=== PATIENT | male | born 1990 | race Caucasian/White ===

== ENCOUNTER 2018-01-10 18:17 | Emergency (ER) | payer SELFPAY ==
[~2018-01-10] VITALS: Ht 175.3 cm; Wt 136.1 kg
[2018-01-10] MEDS ORDERED: IBUP600T16 PO (18:53)
[2018-01-10] MEDS ORDERED: CYCL-331 PO (18:53)
--- NOTE | 2018-01-10 18:53 | PHYS DOC ---
Past History Past Medical History: No Pertinent History Past Surgical History: No Surgical History Alcohol Use: None Drug Use: None Adult General Chief Complaint Chief Complaint: BACK PAIN OR INJURY HPI HPI Patient is a 27 year old male who presents with complaint of right-sided back pain. Patient states that his symptoms started earlier today approximately 3 hours prior to arrival. The patient states that he bent over to pick something up when he felt a sudden twinge of pain along the right lower portion of his back. Patient states that the pain travels along the lateral aspect of the right side but does not extend down past the knee. The patient states that the pain worsens with movement and is very sharp. Patient denies any associated nausea, hematuria, or fever. Patient states he took aspirin prior to arrival with no significant benefit. Patient denies any fall or other trauma. Patient denies any history of low back pain but states he does have history of kidney stones. Patient states over this pain does not feel consistent with kidney stone. Patient denies any numbness to the right lower extremity, loss of bowel or bladder control, footdrop, or saddle anesthesia. Patient rates his pain with movement as 8 out of 10. Review of Systems Review of Systems Constitutional: Denies fever or chills [] Eyes: Denies change in visual acuity, redness, or eye pain [] HENT: Denies nasal congestion or sore throat [] Respiratory: Denies cough or shortness of breath [] Cardiovascular: Denies chest pain or edema[] GI: Denies abdominal pain, nausea, vomiting, bloody stools or diarrhea [] : Denies dysuria or hematuria [] Musculoskeletal: Back pain, denies joint pain[] Integument: Denies rash or skin lesions [] Neurologic: Denies headache, focal weakness or sensory changes [] All other systems were reviewed and found to be within normal limits, except as documented in this note. Allergies Allergies Allergies Coded Allergies Type Severity Reaction Last Updated Verified No Known Drug Allergies 01/10/18 No Physical Exam Physical Exam Constitutional: Alert and afebrile, no acute distress. [] HENT: Normocephalic, atraumatic, bilateral external ears normal, oropharynx moist, no oral exudates, nose normal. [] Eyes: PERRLA, EOMI, conjunctiva normal, no discharge. [] Neck: Normal range of motion, no tenderness, supple, no stridor. [] Cardiovascular:Heart rate regular rhythm, no murmur [] Lungs & Thorax: Bilateral breath sounds clear to auscultation [] Abdomen: Bowel sounds normal, soft, no tenderness, no masses, no pulsatile masses. [] Skin: Warm, dry, no erythema, no rash. [] Back: No midline tenderness, right lower lumbar paraspinous muscle tenderness to palpation, negative straight leg test. [] Extremities: No tenderness, no cyanosis, no clubbing, ROM intact, no edema. [] Neurologic: Alert and oriented X 3, normal motor function, normal sensory function, no focal deficits noted. [] Current Patient Data Vital Signs Vital Signs Date Time Temp Pulse Resp B/P (MAP) Pulse Ox O2 Delivery O2 Flow Rate FiO2 01/10/18 18:17 98.9 79 18 99 Room Air Lab Results Not performed EKG EKG Not performed[] Radiology/Procedures Radiology/Procedures Not performed[] Course & Med Decision Making Course & Med Decision Making Pertinent Labs and Imaging studies reviewed. (See chart for details) Symptoms appear consistent with acute lower lumbar muscle strain. Patient prescribed ibuprofen and Flexeril for continued outpatient treatment. Advised follow-up in 5-7 days with primary doctor for reevaluation and return the emergency Department for any worsening symptoms. Patient was understanding and agreement with treatment plan. Dragon Disclaimer Dragon Disclaimer This electronic medical record was generated, in whole or in part, using a voice recognition dictation system. Departure Departure: Impression: Primary Impression: Acute low back pain Disposition: HOME, SELF-CARE Condition: IMPROVED Referrals: PCP,NO (PCP) Patient Instructions: Back Pain, Adult Additional Instructions: Follow-up with your primary doctor in the next 5-7 days for reevaluation. Return to the emergency department for any worsening symptoms. Scripts Cyclobenzaprine Hcl (CYCLOBENZAPRINE HCL) 10 Mg Tablet 1 TAB PO TID PRN for MUSCLE SPASMS, #30 TAB Prov: RITA MELISSA MD 01/10/18 Ibuprofen (IBUPROFEN) 600 Mg Tablet 600 MG PO Q6HRS PRN for PAIN, #30 TAB Prov: RITA MELISSA MD 01/10/18 Problem Qualifiers Primary Impression: Acute low back pain Back pain laterality: right Sciatica presence: without sciatica Qualified Codes: M54.5 - Low back pain RITA MELISSA MD Jan 10, 2018 18:53
[2018-01-10 19:00] VITALS: BP 163/90
== END 2018-01-10 19:00 | disposition home or self-care (01) ==
LOC: ER 18:17
DX: M54.5 Low back pain (principal); Z87.442 Personal history of urinary calculi
CPT/HCPCS: 99283

== ENCOUNTER 2019-04-12 21:49 | Emergency (ER) | payer OTHER ==
[~2019-04-12] VITALS: Ht 175.3 cm; Wt 124.7 kg
[~2019-04-12 21:49] MED LIST: CYCL-331 PO; IBUP600T16 PO
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
== END 2019-04-12 22:28 | disposition home or self-care (01) ==
LOC: ER 21:49
DX: Z77.21 Contact with and (suspected) exposure to potentially hazardous body fluids (principal); F17.210 Nicotine dependence, cigarettes, uncomplicated
CPT/HCPCS: 86703; 86705; 86709; 86803; 87340; 99284

== ENCOUNTER 2019-06-02 11:55 | Emergency (ER) | payer BC, OTHER ==
[~2019-06-02] VITALS: Ht 175.3 cm; Wt 130.6 kg
--- NOTE | 2019-06-02 12:48 | RAD ---
EXAM: Chest, 2 views. HISTORY: Cough. COMPARISON: None. FINDINGS: 2 views of the chest are obtained. There is no infiltrate, pleural effusion or pneumothorax. The heart is normal in size. IMPRESSION: No acute pulmonary finding. Electronically signed by: Leslie Lai MD (06/02/2019 12:45 PM) [place] [id number]
[2019-06-02] MEDS ORDERED: AMOX1TAB61 PO (13:12)
--- NOTE | 2019-06-02 13:13 | PHYS DOC ---
Past History Past Medical History: No Pertinent History, Other Additional Past Medical Histor: seasonal allergies Past Surgical History: Other Additional Past Surgical Histo: WISDOM TEETH Smoking: Cigarettes, Less than 1pk/day Alcohol Use: Occasionally Drug Use: None Adult General Chief Complaint Chief Complaint: COUGH [facility] HPI Patient is a 28-year-old male who presents with complaint of one month history of productive cough. Patient states that he had initially been on a [place] and states that symptoms had improved and then he later developed a head cold. He states that the head cold has resolved but he continues to have the productive cough. He states the sputum is yellow. He denies any fever. He denies any shortness of breath or chest pain.[] Review of Systems Review of Systems Constitutional: Denies fever or chills [] Respiratory: Complains of cough without shortness of breath [] Cardiovascular: No additional information not addressed in HPI [] Integument: Denies rash or skin lesions [] Neurologic: Denies headache, focal weakness or sensory changes [] All other systems were reviewed and found to be within normal limits, except as documented in this note. Allergies Allergies Allergies Coded Allergies Type Severity Reaction Last Updated Verified No Known Drug Allergies 01/10/18 No Physical Exam Physical Exam Constitutional: Well developed, well nourished, no acute distress, non-toxic appearance. [] Cardiovascular:Heart rate regular rhythm, no murmur [] Lungs & Thorax: Fine rhonchi are noted bilaterally to auscultation [] Extremities: No tenderness, no cyanosis, no clubbing, ROM intact, no edema. [] Neurologic: Alert and oriented X 3, no focal deficits noted. [] Current Patient Data Vital Signs Vital Signs Date Time Temp Pulse Resp B/P (MAP) Pulse Ox O2 Delivery O2 Flow Rate FiO2 06/02/19 12:08 98.4 91 18 98 Room Air EKG EKG [] Radiology/Procedures Radiology/Procedures [] Impressions: PROCEDURE: CHEST PA & LATERAL EXAM: Chest, 2 views. HISTORY: Cough. COMPARISON: None. FINDINGS: 2 views of the chest are obtained. There is no infiltrate, pleural effusion or pneumothorax. The heart is normal in size. IMPRESSION: No acute pulmonary finding. Electronically signed by: Leslie Lai MD (06/02/2019 12:45 PM) [place] [id number] Course & Med Decision Making Course & Med Decision Making Pertinent Labs and Imaging studies reviewed. (See chart for details) [] Dragon Disclaimer Dragon Disclaimer This electronic medical record was generated, in whole or in part, using a voice recognition dictation system. Departure Departure: Impression: Primary Impression: Bronchitis Disposition: 01 HOME, SELF-CARE Condition: STABLE Referrals: PCP,NO (PCP) Patient Instructions: Acute Bronchitis Scripts Amoxicillin/Potassium Clav (AUGMENTIN 875-125 TABLET) 1 Each Tablet 1 TAB PO BID for INFECTION for 10 Days, #20 TAB 0 Refills Prov: TATO AVERY Jr. DO 06/02/19 TATO AVERY Jr. DO Jun 02, 2019 13:13
[2019-06-02 13:39] VITALS: BP 144/96
== END 2019-06-02 13:40 | disposition home or self-care (01) ==
LOC: ER 11:55
DX: J40 Bronchitis, not specified as acute or chronic (principal); F17.210 Nicotine dependence, cigarettes, uncomplicated
CPT/HCPCS: 71046; 99284

== ENCOUNTER 2020-05-13 18:11 | Emergency (ER) | payer BC ==
[~2020-05-13] VITALS: Ht 175.3 cm; Wt 127.2 kg
[~2020-05-13 18:11] MED LIST changes: +AMOX1TAB61 PO
[2020-05-13 18:28] VITALS: BP 162/113
--- NOTE | 2020-05-13 18:55 | PHYS DOC ---
Past History Past Medical History: No Pertinent History, Other Additional Past Medical Histor: seasonal allergies Past Surgical History: Other Additional Past Surgical Histo: WISDOM TEETH Smoking: Cigarettes, Less than 1pk/day Alcohol Use: Occasionally Drug Use: None General Adult EDM: Chief Complaint: COUGH HPI: HPI: 29-year-old male presents with cough and generalized fatigue. The patient is concerned about COVID-19. He states that he was exposed to someone today that has it. Patient also states that he was positive for COVID-19 in December and was off work for 2 weeks at that time. He denies fever or chills. He has mild shortness of breath, but he has had shortness of breath for some time. The patient was diagnosed with asthma 4 years ago but pulmonary function testing recently has shown he does not have asthma. He has stopped taking his Flovent and only occasionally uses his albuterol. He has not been using it lately. Review of Systems: Review of Systems: Constitutional: Denies fever or chills Eyes: Denies change in visual acuity HENT: Denies nasal congestion or sore throat Respiratory: Denies cough or shortness of breath Cardiovascular: Denies chest pain or edema GI: Denies abdominal pain, nausea, vomiting, bloody stools or diarrhea : Denies dysuria Musculoskeletal: Denies back pain or joint pain Integument: Denies rash Neurologic: Denies headache, focal weakness or sensory changes Endocrine: Denies polyuria or polydipsia Lymphatic: Denies swollen glands Psychiatric: Denies depression or anxiety Heart Score: Risk Factors: Risk Factors: DM, Current or recent (<one month) smoker, HTN, HLP, family history of CAD, obesity. Risk Scores: Score 0 - 3: 2.5% MACE over next 6 weeks - Discharge Home Score 4 - 6: 20.3% MACE over next 6 weeks - Admit for Clinical Observation Score 7 - 10: 72.7% MACE over next 6 weeks - Early Invasive Strategies Allergies: Allergies: Allergies Coded Allergies Type Severity Reaction Last Updated Verified No Known Drug Allergies 01/10/18 No Physical Exam: PE: Constitutional: Well developed, well nourished, morbidly obese, no acute distress, non-toxic appearance. [] HENT: Normocephalic, atraumatic, bilateral external ears normal, oropharynx moist, no oral exudates, nose normal. [] Eyes: PERRLA, EOMI, conjunctiva normal, no discharge. [] Neck: Normal range of motion, no tenderness, supple, no stridor. [] Cardiovascular:Heart rate regular rhythm, no murmur [] Lungs & Thorax: Mild end expiratory wheezing in the right base [] Abdomen: Bowel sounds normal, soft, no tenderness, no masses, no pulsatile masses. [] Skin: Warm, dry, no erythema, no rash. [] Back: No tenderness, no CVA tenderness. [] Extremities: No tenderness, no cyanosis, no clubbing, ROM intact, no edema. [] Neurologic: Alert and oriented X 3, normal motor function, normal sensory function, no focal deficits noted. [] Psychologic: Affect normal, judgement normal, mood normal. [] Current Patient Data: Vital Signs: Vital Signs Date Time Temp Pulse Resp B/P (MAP) Pulse Ox O2 Delivery O2 Flow Rate FiO2 05/13/20 18:28 98.6 94 28 162/113 (129) 95 Room Air EKG: EKG: [] Radiology/Procedures: Radiology/Procedures: [] Impressions: Single view chest dated 05/13/2020: No comparison available. Clinical Indication: Shortness breath. Findings: Single upright portable exam of the chest was performed. Heart size and mediastinal contours are within normal limits given technique. The lungs are clear without evidence of focal consolidation. Vascular interstitium is within normal limits. Impression:: Negative portable chest. Electronically signed by: Catina Cervantes MD (05/13/2020 7:09 PM) [facility] [place] DICTATED AND SIGNED BY: CATINA CERVANTES MD DATE: 05/13/201908 CC: TAYLOR GARZA DO; PCP,NO ~ Course & Med Decision Making: Course & Med Decision Making Pertinent Labs and Imaging studies reviewed. (See chart for details) Patient's labs are unremarkable. His chest x-ray is negative for acute findings. I believe the patient having a mild exacerbation of reactive airway disease as he does not meet asthma criteria according to pulmonary function testing. I will give him 125 Solu-Medrol in the emergency room. I have advised that he use his albuterol at home as it will help him clear the mucus and improve his breathing. Patient states verbal understanding. He is stable for discharge at this time. [] Dragon Disclaimer: Dragon Disclaimer: This electronic medical record was generated, in whole or in part, using a voice recognition dictation system. Departure Departure: Impression: Primary Impression: Bronchitis Disposition: 01 HOME/RESIDENCE PRIOR TO ADM Condition: STABLE Referrals: PCP,NO (PCP) Patient Instructions: Acute Bronchitis, [id number] TAYLOR GARZA DO May 13, 2020 18:55
--- NOTE | 2020-05-13 19:11 | RAD ---
Single view chest dated 05/13/2020: No comparison available. Clinical Indication: Shortness breath. Findings: Single upright portable exam of the chest was performed. Heart size and mediastinal contours are within normal limits given technique. The lungs are clear without evidence of focal consolidation. Vascular interstitium is within normal limits. Impression:: Negative portable chest. Electronically signed by: Blane Cervantes MD (05/13/2020 7:09 PM) IESHA
[2020-05-13 19:21] LABS: BASO % 1 % (0-3); EOS # 0.5 x10^3/uL (0.0-0.7); EOS % 7 % (0-3); HEMATOCRIT 41.7 % (39.0-53.0); HEMOGLOBIN 13.9 g/dL (13.0-17.5); LYMPH # 2.3 x10^3/uL (1.0-4.8); LYMPH % 30 % (24-48); MEAN CORPUSCULAR HEMOGLOBIN 28 pg (25-35); MEAN CORPUSCULAR HGB CONC 34 g/dL (31-37); MEAN CORPUSCULAR VOLUME 84 fL (79-100); MONO # 0.6 x10^3/uL (0.0-1.1); MONO % 8 % (0-9); NEUT # 4.4 x10^3uL (1.8-7.7); NEUT % 56 % (31-73); PLATELET COUNT 181 x10^3/uL (140-400); RED BLOOD COUNT 4.96 x10^6/uL (4.30-5.70); RED CELL DISTRIBUTION WIDTH 13.8 % (11.5-14.5); WHITE BLOOD COUNT 7.8 x10^3/uL (4.0-11.0)
[2020-05-13 19:29] LABS: ALBUMIN 3.3 g/dL (3.4-5.0); ALBUMIN/GLOBULIN RATIO 0.8 (1.0-1.7); CALCIUM 9.5 mg/dL (8.5-10.1); CREATININE 1.1 mg/dL (0.7-1.3); GFR 79.1; POTASSIUM 3.7 mmol/L (3.5-5.1); TOTAL BILIRUBIN 0.3 mg/dL (0.2-1.0); TOTAL PROTEIN 7.7 g/dL (6.4-8.2)
[2020-05-13] MEDS ORDERED: methylPREDNISolone SOD SUCC PF 125 MG/2 ML VIAL. IV ONE (19:45)
== END 2020-05-13 20:23 | disposition home or self-care (01) ==
LOC: ER 18:11
DX: J40 Bronchitis, not specified as acute or chronic (principal); F17.210 Nicotine dependence, cigarettes, uncomplicated
CPT/HCPCS: 36415; 71045; 80053; 85025; 96374; 99284; J2930; 99285-25

== ENCOUNTER 2021-04-17 09:24 | Emergency (ER) | payer BC, OTHER ==
[~2021-04-17] VITALS: Ht 175.3 cm; Wt 127.2 kg
[2021-04-17 09:31] VITALS: BP 149/90
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
== END 2021-04-17 10:31 | disposition home or self-care (01) ==
LOC: ER 09:24
DX: S50.01XA Contusion of right elbow, initial encounter (principal); F17.210 Nicotine dependence, cigarettes, uncomplicated; Y04.2XXA Assault by strike against or bumped into by another person, initial encounter; Y93.89 Activity, other specified; Y92.89 Other specified places as the place of occurrence of the external cause; Y99.8 Other external cause status
CPT/HCPCS: 73080; 99283-25

== ENCOUNTER 2021-05-21 09:16 | Emergency (ER) | payer BC, OTHER ==
[~2021-05-21] VITALS: Ht 175.3 cm; Wt 127.2 kg
--- NOTE | 2021-05-21 10:36 | PHYS DOC ---
Past History Past Medical History: No Pertinent History, Other Additional Past Medical Histor: seasonal allergies (CATINA ROMERO APRN) Past Surgical History: Other Additional Past Surgical Histo: WISDOM TEETH (CATINA ROMERO APRN) Smoking: Cigarettes, Less than 1pk/day Alcohol Use: Occasionally Drug Use: None (CATINA ROMERO APRN) Adult General Chief Complaint Chief Complaint: LOWER EXT PAIN HPI HPI Patient is a 30-year-old male presents emergency department complaining of a skin infection to his right lower leg he noticed starting this past Wednesday morning when he woke up from bed. Patient reports he was cutting wood this past Wednesday and was bitten by what he thinks were chigger type insects, reported he was scratching his leg and the area became raw. Patient denies placing any ointments or medications on the area of concern, denies taking any medications to help with his symptoms. Patient states it is painful to touch rating a 5 out of 10 pain. Patient denies other complaints or physical concerns. (CATINA ROMERO APRN) Review of Systems Review of Systems 14 body systems of review of systems have been reviewed. See HPI for pertinent positives and negative responses, otherwise all other systems are negative, nonpertinent or noncontributory. Constitutional: Negative except as outlined in HPI above. Skin: Negative except as outlined in HPI above. Eyes: Negative except as outlined in HPI above. HENT: Negative except as outlined in HPI above. Respiratory: Negative except as outlined in HPI above. Cardiovascular: Negative except as outlined in HPI above. GI: Negative except as outlined in HPI above. : Negative except as outlined in HPI above. Musculoskeletal: Negative except as outlined in HPI above. Integument: Negative except as outlined in HPI above. Neurologic: Negative except as outlined in HPI above. Endocrine: Negative except as outlined in HPI above. Lymphatic: Negative except as outlined in HPI above. Psychiatric: Negative except as outlined in HPI above. (CATINA ROMERO APRN) Allergies Allergies Allergies Coded Allergies Type Severity Reaction Last Updated Verified No Known Drug Allergies 01/10/18 No (CATINA ROMERO APRN) Physical Exam Physical Exam Constitutional: Well developed, well nourished, no acute distress, non-toxic appearance. 30-year-old male in no apparent distress. HENT: Normocephalic, atraumatic. Eyes: Conjunctiva normal, no discharge. Neck: Normal range of motion, no stridor. Cardiovascular: No cyanosis appreciated, distal cap refill less than 2 seconds. Lungs & Thorax: Patient is in no respiratory distress, no audible adventitious lung sounds appreciated. Abdomen: Nontender, no abnormalities noted. Skin: Warm, dry, no erythema, no rash. Except for right lower extremity anterior aspect lower leg just above ankle area has 5 x 7 cm area of erythema clearly demarcated skin borders not raised with centralized yellow crusted skin weeping. No lymphangitis appreciated. Back: No tenderness, no deformities. Extremities: No tenderness, no cyanosis, no clubbing, ROM intact, no edema. Right lower extremity 2+ dorsalis pedis/posterior tibial pulse, no edema or swelling appreciated. No loss of sensation. Neurologic: Alert and oriented X 3, normal motor function, normal sensory function, no focal deficits noted. Psychologic: Affect normal, judgement normal, mood normal. (CATINA ROMERO APRN) Current Patient Data Vital Signs Vital Signs Date Time Temp Pulse Resp B/P (MAP) Pulse Ox O2 Delivery O2 Flow Rate FiO2 05/21/21 09:46 98.2 72 20 147/86 (106) 97 Room Air (CATINA ROMERO APRN) EKG EKG [] (CATINA ROMERO APRN) Radiology/Procedures Radiology/Procedures [] (CATINA ROMERO APRN) Heart Score C/O Chest Pain: No Risk Factors: Risk Factors: DM, Current or recent (<one month) smoker, HTN, HLP, family history of CAD, obesity. Risk Scores: Risk Factors: DM, Current or recent (<one month) smoker, HTN, HLP, family history of CAD, obesity. (CATINA ROMERO APRN) Course & Med Decision Making Course & Med Decision Making Pertinent Labs and Imaging studies reviewed. (See chart for details) 30-year-old male, vital signs reviewed, presents emergency department concerning skin infection of his right lower leg. Physical examination consistent with cellulitis, however does have yellow crusted weeping. Discussed with patient will start on Keflex p.o. 4 times a day x7 days, will also prescribe mupirocin ointment topically for differential Staphylococcus coverage related to yellow crusted weeping and patient's history of type 2 diabetes. Patient is amenable to ED planning. Discussed antibiotics and side effects. Discussed with the patient all findings and diagnostic testing as well as the need to follow-up with their primary care provider for further evaluation and treatment or return to the ED if any new or worsening symptoms. Strict return precautions were also discussed at length, the patient voiced understanding and agreement with the discharge planning. The patient was nontoxic in appearance, in no apparent distress, and hemodynamically stable at the time of disposition. (CATINA ROMERO APRN) Course & Med Decision Making I was the Attending physician on the above date of service of this patient. This patient was evaluated, examined, treated, and dispositioned from the emergency department by the mid-level practitioner. Although I was working at the time , no assistance was requested. Electronically signed, Starr Cabello DO (STARR CABELLO DO) [place] Disclaimer Dragon Disclaimer This electronic medical record was generated, in whole or in part, using a voice recognition dictation system. (CATINA ROMERO APRN) Departure Departure: Impression: Primary Impression: Cellulitis Disposition: 01 HOME / SELF CARE / HOMELESS Condition: GOOD Referrals: CHRISTIANO BYNUM (PCP) Patient Instructions: Cellulitis Additional Instructions: You were seen today for an infection of your lower right leg. As we discussed this is a skin infection called cellulitis. I have started you on an oral antibiotic as well as a topical antibiotic that you will place on the infected area 3 times a day after cleansing, please take oral antibiotic as directed until complete. Keep clean and dry and place antibiotic ointment on the affected area 2-3 times a day. Please follow-up with your primary care physician soon for reevaluation of your skin infection or worsening of symptoms. Thank you for visiting our Emergency Department. It was a pleasure taking care of you today in the emergency department and we appreciate you trusting us with your care. If any additional problems come up don't hesitate to return to visit us. Please follow up with your primary care provider so they can plan additional care if needed and know about the problem that you had. If symptoms worsen come back to the Emergency Department. Any concerning symptoms that start such as chest pain, shortness of air, weakness or numbness on one side of the body, running high fevers or any other concerning symptoms return to the ER. EMERGENCY DEPARTMENT GENERAL DISCHARGE INSTRUCTIONS Thank you for coming to [facility] (ED) today and trusting us with you care. We trust that you had a positivie experience in our Emergency Department. If you wish to speak to the department management, you may call the director at [phone]. YOUR FOLLOW UP INSTRUCTIONS ARE FOLLOWS: 1. Do you have a private Doctor? If you do not have a private doctor, please ask for a resource list of physicians or clinics that may be able to assist you with follow up care. 2. The Emergency Physician has interpreted your x-rays. The X-Ray specialist will also review them. If there is a change in the findings, you will be notified in 48 hours when at all possible. 3. A lab test or culture has been done, your results will be reviewed and you will be notified if you need a change in treatment. ADDITIONAL INSTRUCTIONS AND INFORMATION: 1. Your care today has been supervised by a physician who is specially trained in emergency care. Many problems require more than one evaluation for a complete diagnosis and treatment. We recommend that you schedule your follow up appointment as recommended to ensure complete treatment of you illness or injury. If you are unable to obtain follow up care and continue to have a problem, or if your condition worsens, we recommend that you return to the ED. 2. We are not able to safely determine your condition over the phone nor are we able to give sound medical advice over the phone. For these safety reasons, if you call for medical advice we will ask you to come to the ED for further evaluation. 3. If you have any questions regarding these discharge instructions please call the ED at [phone]. SAFETY INFORMATION: In the interest of safety, wellness, and injury prevention; we encourage you to wear your sealbelt, if you smoke; quite smoking, and we encourage family to use a protective helmet for bicycling and other sporting events that present an increased risk for head injury. IF YOUR SYMPTOMS WORSEN OR NEW SYMPTOMS DEVELOP, OR YOU HAVE CONCERNS ABOUT YOUR CONDITION; OR IF YOUR CONDITION WORSENS WHILE YOU ARE WAITING FOR YOUR FOLLOW UP APPOINTMENT; EITHER CONTACT YOUR PRIMARY CARE DOCTOR, THE PHYSICIAN WHOSE NAME AND NUMBER YOU WERE GIVEN, OR RETURN TO THE ED IMMEDIATELY. Scripts Mupirocin (MUPIROCIN) 22 Gm Oint...g. 1 PARAG TP TID for skin infection for 5 Days, #22 GM 0 Refills Apply to infected area three times a day for 5 days. Prov: CATINA ROMERO APRN 05/21/21 Cephalexin (KEFLEX) 500 Mg Capsule 1 CAP PO QID for Skin infection for 7 Days, #28 CAP 0 Refills Prov: CATINA ROMERO APRN 05/21/21 Problem Qualifiers Primary Impression: Cellulitis Site of cellulitis: extremity Site of cellulitis of extremity: lower extremity Laterality: right Qualified Codes: L03.115 - Cellulitis of right lower limb CATINA ROMERO APRN May 21, 2021 10:36 STARR CABELLO DO May 22, 2021 06:09
[2021-05-21] MEDS ORDERED: CEPH500C PO (10:47)
[2021-05-21] MEDS ORDERED: MUPI22OI2 TP (10:47)
[2021-05-21 10:50] VITALS: BP 137/86
[2021-05-21] MEDS ORDERED: BACITRACIN ZINC TOPICAL OINT PACKET. TP ONE (11:00)
== END 2021-05-21 11:01 | disposition home or self-care (01) ==
LOC: ER 09:16
DX: L03.115 Cellulitis of right lower limb (principal); F17.210 Nicotine dependence, cigarettes, uncomplicated
CPT/HCPCS: 99283

== ENCOUNTER 2021-05-25 09:00 | Emergency (ER) | payer BC ==
[~2021-05-25] VITALS: Ht 175.3 cm; Wt 127.2 kg
[2021-05-25 09:00] VITALS: BP 153/71
[~2021-05-25 09:00] MED LIST changes: +CEPH500C PO; +MUPI22OI2 TP
[2021-05-25] MEDS ORDERED: CLIN150C16 PO (09:24)
--- NOTE | 2021-05-25 09:25 | PHYS DOC ---
Past History Past Medical History: No Pertinent History, Other Additional Past Medical Histor: seasonal allergies Past Surgical History: Other Additional Past Surgical Histo: WISDOM TEETH Smoking: Cigarettes, Less than 1pk/day Alcohol Use: Occasionally Drug Use: None Adult General Chief Complaint Chief Complaint: CELLULITIS HPI HPI Patient is a 30-year-old male presenting for cellulitis of right lower extremity. This started approximately 1 week ago after he was cutting wood and was bitten numerous times on lower extremities by chigger type insects. States he was scratching his leg until the area became. He presented to our ER 5 days ago for evaluation and at that time was given Keflex and mupirocin for cellulitis treatment. Patient adhered to wound care instructions and return precautions, states area of erythema has grown in size and remains pruritic and painful and brought to the touch. He was concerned as he feels that the skin lesion is getting larger despite him being completely compliant with prescribed mupirocin cream and Keflex. He is otherwise been afebrile, no other symptoms reported Review of Systems Review of Systems Fourteen body systems of review of systems have been reviewed. See HPI for pertinent positives and negative responses, other pena all other systems are negative, non-pertinent or non-contributory Allergies Allergies Allergies Coded Allergies Type Severity Reaction Last Updated Verified No Known Drug Allergies 01/10/18 No Physical Exam Physical Exam Constitutional: Well developed, well nourished, no acute distress, non-toxic appearance. HENT: Normocephalic, atraumatic, bilateral external ears normal, oropharynx m oist, no oral exudates, nose normal. Eyes: PERRLA, EOMI, conjunctiva normal, no discharge. Neck: Normal range of motion, no tenderness, supple, no stridor. Cardiovascular: Heart rate regular, sinus rhythm, no murmurs rubs or gallops Lungs & Thorax: Bilateral breath sounds clear to auscultation Abdomen: Bowel sounds normal, soft, no tenderness, no masses, no pulsatile masses. Nonsurgical abdomen, no peritoneal signs Skin: Warm, dry, on patient's distal portion of right lower extremity superior to ankle on anterior portion of santizo he has erythematous macules with areas overlying that can pain vesicles with some bullous formation. Entire area which is approximately 4 x 5 cm induration is slightly indurated without any streaking or crepitus Back: No tenderness, no CVA tenderness. Extremities: No tenderness, no cyanosis, no clubbing, ROM intact, no edema. Neurologic: Alert and oriented X 3, grossly normal motor & sensory function, no focal deficits noted. Psychologic: Affect normal, judgement normal, mood normal. Current Patient Data Vital Signs Vital Signs Date Time Temp Pulse Resp B/P (MAP) Pulse Ox O2 Delivery O2 Flow Rate FiO2 05/25/21 09:00 70 14 153/71 (98) 99 Room Air EKG EKG [] Radiology/Procedures Radiology/Procedures [] Heart Score C/O Chest Pain: No Risk Factors: Risk Factors: DM, Current or recent (<one month) smoker, HTN, HLP, family history of CAD, obesity. Risk Scores: Risk Factors: DM, Current or recent (<one month) smoker, HTN, HLP, family history of CAD, obesity. Course & Med Decision Making Course & Med Decision Making ABCs unremarkable HPI physical exam and comprehensive ER work-up nonconcerning for any emergent or surgical issues Patient here for cellulitis, appears to be getting worse despite being on adequate treatment with Keflex to target staph organisms With that said, I had extensive conversation with patient he works in local correction/long term's. He is exposed and at risk for MRSA. There is concern for potential MRSA infection given that he had been scratching the leg and he had been exposed to this at work During decision made to switch antibiotics from Keflex to clindamycin. He was educated on the risks and benefits of this medication and the importance of taking it as scheduled to completion Patient advised to schedule follow-up with primary care physician this upcoming week to review ER visit today and need for close repeat evaluation. Strict return precautions discussed with verbalized understanding by patient, all questions and concerns addressed prior to departure Dragon Disclaimer Dragon Disclaimer This electronic medical record was generated, in whole or in part, using a voice recognition dictation system. Departure Departure: Impression: Primary Impression: Bullous impetigo Disposition: HOME / SELF CARE / HOMELESS Condition: STABLE Referrals: CHRISTIANO BYNUM (PCP) Patient Instructions: Clindamycin injection Additional Instructions: You were seen for an infection called bullous impetigo otherwise known as lo lulitis. You should ten the area of redness when you get home. If your redness spreads past the marked area at 24 hours you should have it evaluated again. You do not have an abscess right now but you could develop one. If so you will need to have it drained. You should return to the ED immediately if you develop worsening pain, fever, swelling, redness, drainage, any sign of abscess, or any other new or concerning symptoms. Take the entire course of antibiotics as prescribed. You were prescribed clindamycin which will cover MRSA which you are exposed to at your occupation. Please defer to resource sheet which will detail side effects that although are not common, may present and require medical attention. It is imperative for you to contact your primary care provider tomorrow to review recent ER visits and need for close outpatient follow-up Scripts Clindamycin Hcl (CLINDAMYCIN HCL) 150 Mg Capsule 3 CAP PO TID for cellulitis for 10 Days, #57 CAP Prov: STARR CABELLO DO 05/25/21 STARR CABELLO DO May 25, 2021 09:25
[2021-05-25] MEDS ORDERED: CLINDAMYCIN HCL 150 MG CAPSULE ONE (09:28)
[2021-05-25] MEDS ORDERED: CLINDAMYCIN HCL 150 MG CAPSULE PO ONE (09:30)
== END 2021-05-25 09:35 | disposition home or self-care (01) ==
LOC: ER 09:00
DX: L03.115 Cellulitis of right lower limb (principal); F17.210 Nicotine dependence, cigarettes, uncomplicated
CPT/HCPCS: 99283-25

== ENCOUNTER 2021-05-30 09:17 | Emergency (ER) | payer BC ==
[~2021-05-30] VITALS: Ht 175.3 cm; Wt 127.2 kg
[~2021-05-30 09:17] MED LIST changes: +CLIN150C16 PO
[2021-05-30] MEDS ORDERED: PRED50TA PO (10:01)
--- NOTE | 2021-05-30 10:02 | PHYS DOC ---
Past History Past Medical History: No Pertinent History, Other Additional Past Medical Histor: seasonal allergies Past Surgical History: Other Additional Past Surgical Histo: WISDOM TEETH Smoking: Cigarettes, Less than 1pk/day Alcohol Use: Occasionally Drug Use: None General Adult EDM: Chief Complaint: ALLERGIC REACTION HPI: HPI: Patient is a 30-year-old male presenting with pruritic rash more centralized on his chest and forearms. Also states that his whole body is itching. Is taking Benadryl without improvement. Patient states that he was being treated for a rash on distal right anterior santizo with a steroid cream by his primary care prov ider. Patient states he also has taken Keflex and was recently prescribed clindamycin 4 days ago. Patient states the rash on the other parts of his body started 2 days ago. Review of Systems: Review of Systems: All other systems within normal limits except for as noted in the HPI Allergies: Allergies: Allergies Coded Allergies Type Severity Reaction Last Updated Verified No Known Drug Allergies 05/30/21 No Physical Exam: PE: Constitutional: Well developed, well nourished, no acute distress, non-toxic appearance. [] HENT: Normocephalic, atraumatic, bilateral external ears normal, nose normal. [] Eyes: PERRLA, conjunctiva normal, no discharge. [] Neck: No rigidity, supple, no stridor. [] Cardiovascular: Regular rate and rhythm, brisk cap refill [] Lungs & Thorax: Non labored symmetric respirations, no tachypnea or respiratory distress [] Abdomen: Soft, nondistended. Skin: Warm, dry, erythema on right lower leg, blanching. Has a scabbed area. No hives. Faint papules on chest. Back: Unremarkable Extremities: No deformities, range of motion grossly intact, no lower extremity edema [] Neurologic: Alert and oriented X 3, no focal deficits noted. [] Psychologic: Affect normal, judgement normal, mood normal. [] Current Patient Data: Vital Signs: Vital Signs Date Time Temp Pulse Resp B/P (MAP) Pulse Ox O2 Delivery O2 Flow Rate FiO2 05/30/21 09:32 96.4 87 18 157/94 (115) 98 Room Air EKG: EKG: [] Radiology/Procedures: Radiology/Procedures: [] Heart Score: C/O Chest Pain: No Risk Factors: Risk Factors: DM, Current or recent (<one month) smoker, HTN, HLP, family history of CAD, obesity. Risk Scores: Score 0 - 3: 2.5% MACE over next 6 weeks - Discharge Home Score 4 - 6: 20.3% MACE over next 6 weeks - Admit for Clinical Observation Score 7 - 10: 72.7% MACE over next 6 weeks - Early Invasive Strategies Course & Med Decision Making: Course & Med Decision Making Pertinent Labs and Imaging studies reviewed. (See chart for details) [] Dragon Disclaimer: Dragon Disclaimer: This electronic medical record was generated, in whole or in part, using a voice recognition dictation system. Departure Departure: Impression: Primary Impression: Allergic reaction Disposition: HOME / SELF CARE / HOMELESS Condition: STABLE Referrals: CHRISTIANO BYNUM (PCP) Patient Instructions: Rasburicase Injection Scripts Prednisone (PREDNISONE) 50 Mg Tablet 1 TAB PO DAILY for steroid for 5 Days, #5 TAB You received this medication in the emergency room today. You will starting your next dose tomorrow. Prov: COURTNEY MARKS MD 05/30/21 COURTNEY MARKS MD May 30, 2021 10:02
[2021-05-30 10:37] VITALS: BP 142/81
== END 2021-05-30 10:37 | disposition home or self-care (01) ==
LOC: ER 09:17
DX: T78.40XA Allergy, unspecified, initial encounter (principal); F17.210 Nicotine dependence, cigarettes, uncomplicated; X58.XXXA Exposure to other specified factors, initial encounter
CPT/HCPCS: 99283-25